=== PATIENT | female | born 1980 | race Caucasian/White ===

== ENCOUNTER 2016-08-07 08:49 | Emergency (ER) | payer OTHER, BC ==
--- NOTE | 2016-08-22 15:27 | ER ---
ADMIT: 08/07/2016 RM/LOC: ER [facility] MR#: [id number] [address] [id number] [address]NE PETE [address] [place] [id number] Emergency Room Report SEX: F AGE: 36 : 1980 DATE: 08/07/2016 ADDENDUM: CHIEF COMPLAINT: Laceration. HISTORY OF PRESENT ILLNESS: This 36-year-old female, who works for [email or web address]. She has a laceration that is about 3 cm. The repair was done here in the emergency room. I sent her home with Keflex and Bactrim to prevent infection, having her followup her primary care physician in 7 to 10 days for suture removal. CLINICAL IMPRESSION: Laceration to right forearm, secondary to work. PARIS Augustin / Leroy Singletary MD / kylah JOB #: [id number] CC: Leroy Singletary MD, Attending Physician UNKNOWN, Family Physician
== END 2016-08-07 10:08 | disposition home or self-care (01) ==
LOC: ER 08:49
PROC: 0HQDXZZ Repair Right Lower Arm Skin, External Approach (ICD-10-PCS; principal; 2016-08-07)
DX: S51.811A Laceration without foreign body of right forearm, initial encounter (principal); X58.XXXA Exposure to other specified factors, initial encounter; Y92.009 Unspecified place in unspecified non-institutional (private) residence as the place of occurrence of the external cause; Y99.0 Civilian activity done for income or pay